=== PATIENT | male | born 1990 | race Caucasian/White ===

== ENCOUNTER 2023-09-24 15:31 | Emergency (ER) | payer MEDICAID ==
[~2023-09-24] VITALS: Ht 177.8 cm; Wt 68.0 kg
[2023-09-24 15:37] VITALS: BP 100/72; PULSE 67; TEMP 96.6; O2SAT 98
== END 2023-09-24 17:02 | disposition home or self-care (01) ==
LOC: MED 15:31
DX: S21.211D Laceration without foreign body of right back wall of thorax without penetration into thoracic cavity, subsequent encounter (principal); Z48.02 Encounter for removal of sutures; X58.XXXD Exposure to other specified factors, subsequent encounter
CPT/HCPCS: 99283